=== PATIENT | female | born 1955 | race Caucasian/White ===

== ENCOUNTER 2020-07-12 11:42 | Inpatient (IN) ==
[2020-07-12] MEDS ORDERED: *HR* FentaNYL (PF) 100 MCG/2 ML VIAL IVP ONE (12:06)
[2020-07-12] MEDS ORDERED: *HR* Heparin 5,000 UNIT/ML VIAL IVP ONE (12:08)
[2020-07-12] MEDS ORDERED: *HR* Heparin 5,000 UNIT/ML VIAL IVP PRN ×2 (12:08)
[2020-07-12] MEDS ORDERED: Heparin 25,000UNIT/250ML 1/2NS 25,000 UNIT/250 ML IV.SOLN IVC SCH (12:15)
[2020-07-12] MEDS ORDERED: *HR* Metoprolol 5 MG/5 ML VIAL IVP ONE (12:20)
[2020-07-12] MEDS ORDERED: Nitroglycerin 0.4 MG TAB.SUBL SL PRN (12:20)
[2020-07-12 12:32] LABS: Band Neutrophils % 33.6 % (0-4); Hematocrit 47.1 % (35.3-44.9); Hemoglobin 15.9 g/dL (11.5-15.4); Immature Granulocytes % 7.8 % (0-4); Lymphocytes # 0.1 K/mcL (0.6-4.6); Lymphocytes % 1.2 %; Mean Corpuscular HGB Conc 33.8 g/dL (31.6-35.5); Mean Corpuscular Hemoglobin 31.3 pg (28.0-33.3); Mean Corpuscular Volume 92.7 fL (83.0-100.0); Mean Platelet Volume 9.4 fL (9.4-12.4); Monocytes % 0.5 %; Neutrophils # 7.5 K/mcL (1.6-8.9); Platelet Count 296 K/mcL (140-400); Red Blood Count 5.08 M/mcL (3.82-4.97); Red Cell Distribution Width 14.1 % (11.5-14.5); Segmented Neutrophils % 56.7 %; White Blood Count 8.3 K/mcL (4.3-11.1)
[2020-07-12 12:35] LABS: BUN/Creatinine Ratio 18 (6-26); Blood Urea Nitrogen 12 mg/dL (8-23); Calcium 9.4 mg/dL (8.6-10.3); Carbon Dioxide 27 mEq/L (23-29); Chloride 104 mEq/L (98-107); Glucose 122 mg/dL (70-105); Osmolality,Calculated 293 (280-300); Potassium 3.4 mEq/L (3.5-5.1); Sodium 141 mEq/L (136-145); Troponin I < 0.03 ng/mL (< 0.04); eGFR For African Americans > 60 (> 60); eGFR For Non-African Americans > 60 (> 60)
[2020-07-12] MEDS ORDERED: *HR* Heparin 10,000 UNIT/10 ML VIAL ONE (12:57)
[2020-07-12] MEDS ORDERED: Heparin 1,000 UNITS/500 mL 500 ML ONE ×2 (12:57→13:53)
[2020-07-12] MEDS ORDERED: ISOVUE-370 200 ML INFUS..BTL ONE ×2 (12:57→13:55)
[2020-07-12] MEDS ORDERED: Nitroglycerin 1,000 MCG/10 ML VIAL IV ONE (12:57)
[2020-07-12] MEDS ORDERED: 0.9 % Sodium Chloride 1,000 ML ONE (12:57)
[2020-07-12] MEDS ORDERED: *HR* Midazolam HCl 2 MG/2 ML VIAL ONE ×2 (12:59→14:24)
[2020-07-12] MEDS ORDERED: *HR* FentaNYL (PF) 100 MCG/2 ML VIAL ONE ×3 (13:00→15:05)
[2020-07-12 13:12] LABS: Heparin anti-factor XA UFH < 0.04 IU/mL (0.30-0.70); INR 1.1; Prothrombin Time 12.6 Seconds (9.4-12.1)
[2020-07-12] MEDS ORDERED: Tirofiban 12.5 MG/250ML 12.5 MG/250 ML BAG ONE (15:02)
[2020-07-12] MEDS ORDERED: *HR* Ticagrelor 90 MG TABLET ONE (15:08)
[2020-07-12] MEDS ORDERED: 0.9 % Sodium Chloride 1,000 ML IVC SCH (15:45)
[2020-07-12] MEDS ORDERED: Ondansetron 4 MG/2 ML VIAL IVP PRN (15:49)
[2020-07-12] MEDS ORDERED: *HR* HYDROcodone/Acet 5/325 mg TABLET PO PRN (15:49)
[2020-07-12] MEDS ORDERED: Naloxone 0.4 MG/ML INJ IVP PRN (15:49)
[2020-07-12] MEDS ORDERED: Ringers Solution, Lactated 1,000 ML IVC SCH (16:30)
[2020-07-12] MEDS: *HR* Heparin 5,000 UNIT/ML VIAL SQ SCH (17:20)
[2020-07-12] MEDS ORDERED: Adenosine 90 MG/30 ML MLS IV ONE (17:52)
[2020-07-12] MEDS: *HR* Ticagrelor 90 MG TABLET PO SCH (20:07)
[2020-07-13 06:14] LABS: Alanine Aminotransferase 25 Units/L (7-52); Albumin 4.2 g/dL (3.5-5.7); Albumin/Globulin Ratio 1.5 (1.1-2.2); Alkaline Phosphatase 70 Units/L (34-104); Aspartate Amino Transferase 78 Units/L (13-39); BUN/Creatinine Ratio 14 (6-26); Bilirubin,Total 0.6 mg/dL (0.3-1.0); Blood Urea Nitrogen 10 mg/dL (8-23); Calcium 9.5 mg/dL (8.6-10.3); Carbon Dioxide 29 mEq/L (23-29); Chloride 104 mEq/L (98-107); Chol/HDL Ratio 4.2 (0-4.9); Cholesterol 148 mg/dL (< 200); Globulin 2.8 g/dL (2.4-3.5); Glucose 141 mg/dL (70-105); HDL Cholesterol 35 mg/dL (40-59); LDL Cholesterol,Calculated 75 mg/dL (< 100); Magnesium 1.8 mg/dL (1.6-2.6); Osmolality,Calculated 291 (280-300); Potassium 4.1 mEq/L (3.5-5.1); Sodium 140 mEq/L (136-145); Triglycerides 188 mg/dL (< 150); eGFR For African Americans > 60 (> 60); eGFR For Non-African Americans > 60 (> 60)
[2020-07-13] MEDS ORDERED: Levothyroxine 25 MCG TABLET PO SCH (06:30)
[2020-07-13] MEDS: *HR* Heparin 5,000 UNIT/ML VIAL SQ SCH ×2 (06:30→16:18)
[2020-07-13 07:34] LABS: Immature Reticulocyte % 19.6 % (11.0-38.0); Retculocyte # 0.09 M/mcL (0.05-0.10); Reticulocyte % 1.8 % (1.6-2.8)
[2020-07-13 07:39] LABS: Basophils # 0.1 K/mcL (0.0-0.2); Basophils % 0.4 %; Eosinophils # 0.1 K/mcL (0.0-0.6); Eosinophils % 1.1 %; Hemoglobin 16.2 g/dL (11.5-15.4); Immature Granulocytes % 0.3 % (0-4); Lymphocytes # 2.9 K/mcL (0.6-4.6); Mean Corpuscular HGB Conc 33.1 g/dL (31.6-35.5); Mean Corpuscular Hemoglobin 31.4 pg (28.0-33.3); Monocytes # 0.9 K/mcL (0.0-1.3); Monocytes % 7.8 %; Neutrophils # 7.7 K/mcL (1.6-8.9); Platelet Count 292 K/mcL (140-400); Red Blood Count 5.16 M/mcL (3.82-4.97); Red Cell Distribution Width 14.5 % (11.5-14.5); Segmented Neutrophils % 65.4 %; White Blood Count 11.8 K/mcL (4.3-11.1)
[2020-07-13] MEDS ORDERED: Perflutren Lipid Microsphere 1.3 ML in 0.9 % Sodium Chloride 8.7 ML IVP PRN (08:33)
[2020-07-13] MEDS ORDERED: Furosemide 20 MG/2 ML VIAL IVP ONE (08:55)
[2020-07-13] MEDS ORDERED: Aspirin Enteric Coated 81 MG Tablet PO SCH (09:00)
[2020-07-13] MEDS ORDERED: Metoprolol XL (24 HR) Succ 25 MG TAB.ER.24H PO SCH (09:00)
[2020-07-13] MEDS ORDERED: lisinopriL 10 MG TABLET PO SCH (09:00)
[2020-07-13] MEDS: *HR* Ticagrelor 90 MG TABLET PO SCH (09:03)
[2020-07-13] MEDS: Acetaminophen 325 MG TABLET PO PRN ×2 (09:13→16:14)
[2020-07-13 10:37] LABS: Adenovirus Not Detected (Not Detect); Coronavirus 229E Not Detected (Not Detect); Coronavirus HKU1 Not Detected (Not Detect); Coronavirus NL63 Not Detected (Not Detect); Coronavirus OC43 Not Detected (Not Detect)
[2020-07-13 10:38] LABS: Bordetella Pertussis Not Detected (Not Detect); Chlamydophila pneumoniae Not Detected (Not Detect); Human Metapneumovirus Not Detected (Not Detect); Human Rhinovirus/Enterovirus Not Detected (Not Detect); Influenza A Subtype 2009 H1 Not Detected (Not Detect); Influenza B Not Detected (Not Detect); Mycoplasma pneumoniae Not Detected (Not Detect); Parainfluenza Virus 1 Not Detected (Not Detect); Parainfluenza Virus 2 Not Detected (Not Detect); Parainfluenza Virus 3 Not Detected (Not Detect); Parainfluenza Virus 4 Not Detected (Not Detect); Respiratory Syncytial Virus Not Detected (Not Detect); SARS-CoV-2 Not Detected (Not Detect)
[2020-07-13 14:51] VITALS: BP 134/84
[2020-07-13 17:16] LABS: Estimated Average Glucose 163 mg/dl
[2020-07-13] MEDS ORDERED: *HR* Ticagrelor 90 MG TABLET PO SCH (17:30)
== END 2020-07-13 17:53 | disposition home or self-care (01) | DRG 247 ==
LOC: EMEROOARM 11:42 → 3BNU 11:42
PROVIDERS: ADMIT Internal Medicine; ATTEND Internal Medicine